=== PATIENT | male | born 1955 | race Caucasian/White ===

== ENCOUNTER 2017-08-13 13:19 | Inpatient (IN) | payer OTHER ==
[~2017-08-13] VITALS: Ht 185.4 cm; Wt 190.5 kg
--- NOTE | ~2017-08-13 | HC ---
[facility] [place] [address] CONSULTATION Name: CHIDI ROMO Room #: [facility]ly [facility], [facility]- ADM IN M.R.#: [id number] Admission: 08/13/17 Attend Phys: Jarad Del Rosario DO Discharge: Date of : 55 Report #: [id number] THIS REPORT FOR: //name// CC: FAM unknown Jarad Del Rosario DATE OF SERVICE: 08/13/2017 REFERRING PROVIDER: Elan Gill MD. REASON FOR CONSULTATION: Respiratory failure. CHIEF COMPLAINT: Weakness. HISTORY OF PRESENT ILLNESS: Our group was asked to evaluate the patient in consultation while hospitalized at [facility] in the ICU. The patient was transferred here from [facility] earlier today. The patient was transferred on mechanical ventilatory support. The patient is unable to vocalize, but able to answer some yes/no questions. Seems alert and appropriate on discussing. Apparently, he has been having a prolonged period of generalized weakness, perhaps even up to 1 month. The patient states he did have some increased shortness of breath and has had some chest tightness today. No fevers, chills or sweats reported. The patient was brought to the Emergency Department at [facility] where he was found to be hypercapnic and in respiratory distress. The patient was subsequently intubated and troponin was mildly elevated. He was transferred here for further management. He is on heparin GTT for possible myocardial infarction. Chest x-ray in the Emergency Department showed significant cardiomegaly and bibasilar left greater than right infiltrate/atelectasis and effusions. ALLERGIES: INCLUDE PENICILLIN. OUTPATIENT MEDICATIONS: Include ____, fish oil, glipizide, lisinopril/hydrochlorothiazide, omeprazole, Restoril, Vicodin and Xanax. PAST MEDICAL HISTORY: 1. Hypertension. 2. Diabetes mellitus type 2. 3. Morbid obesity. 4. COPD. SOCIAL HISTORY: The patient states he is an active smoker up until very recently. Alcohol consumption uncertain. FAMILY HISTORY: Unobtainable due to current status. [facility] [address] [place] [address] CONSULTATION Name: CHIDI ROMO Room #: [address] [place] [address] IN M.R.#: [id number] Admission: 08/13/17 Attend Phys: Jarad Del Rosario DO Discharge: Date of : 55 Report #: [id number] REVIEW OF SYSTEMS: Otherwise unobtainable due to current status. PHYSICAL EXAMINATION: VITAL SIGNS: Afebrile, pulse in 70s, respiratory rate of 24 set on the ventilator and blood pressure was originally ____. GENERAL: This is a morbidly obese, middle-aged male, arousable on the vent, does not appear in any distress with facial plethora noted. ENT: Endotracheal tube in place. Significant clear oral secretions. NECK: Thick and supple. No lymphadenopathy. LUNGS: Diminished coarse expiratory rhonchi and expiratory wheezes noted throughout anteriorly. Did not auscultate posteriorly. CARDIOVASCULAR: Heart was regular, cannot appreciate any murmurs, although heart sounds were difficult to auscultate. ABDOMEN: Obese, soft and nontender. No masses noted. No surgical scars appreciated. EXTREMITIES: Revealed some chronic venous stasis changes with markedly diminished pulses. Some cyanosis to the distal lower extremities with trace edema. NEUROLOGIC: The patient moving all extremities, arousable, following simple commands. LABORATORIES: Here arterial blood gas done on assist control, tidal volume 600, rate of 14, PEEP of 5, FiO2 100% revealed pH 7.21, pCO2 76, pO2 85, bicarbonate 30, lactate was 1.76. Additional laboratories here pending. Followup chest x-ray here pending. EKG done at [facility], computer interpretation suggested atrial flutter, appears to be more sinus tachycardia to my review and some poor R-wave progression. White blood cell count 9000, hemoglobin 19, hematocrit 59 and platelet count 161. Sodium is 137, potassium 5.5, chloride 99 and bicarbonate 28. BUN 55 and creatinine 2.5. Chest x-ray as described in HPI. IMPRESSION: 1. Acute hypercapnic respiratory failure. 2. Acute probably on chronic hypoxemic respiratory failure given his facial plethora and elevated hemoglobin. Suspect significant chronic hypoxemia, likely related to chronic obstructive pulmonary disease. Possible obesity hypoventilation with underlying obstructive sleep apnea possible and also would evaluate for hypothyroidism. 3. Probably acute on chronic renal insufficiency. 4. Hyperkalemia. 5. Hypertension. Right radial arterial line placed for further evaluation of this and markedly elevated blood pressures. 6. Chest pains with elevated troponin per cardiology. Would consider pulmonary embolism also in the differential. SUGGESTIONS: 1. Continue heparin. [facility] [address] [place] [address] CONSULTATION Name: CHIDI ROMO Room #: 246-P ADM IN M.R.#: [id number] Admission: 08/13/17 Attend Phys: Jarad Del Rosario DO Discharge: Date of : 55 Report #: [id number] 2. Followup chest x-ray. 3. Cardiology evaluation. 4. Echocardiogram. 5. Lower extremity venous Doppler. 6. Continue antibiotics as planned. 7. We will adjust ventilator to optimize minute volume and reduce peak airway pressures on prior settings. Peak airway pressures in the 40s, much better on lower tidal volume high rate settings. We will obtain followup arterial blood gas. 8. Systemic steroids. 9. Bronchodilators. 10. Continue with antibiotics as ordered. Total critical care time 45 minutes, not including any procedures to this point. Discussed with Dr. Gill and nursing at the bedside. By: [id number] Francisco Ortiz MD /nt
--- NOTE | ~2017-08-13 | 2DMMODE ---
[facility] [employer] [place] [address] 2 D/M-MODE ECHOCARDIOGRAM Name: CHIDI ROMO Room #: 246-P ADM IN M.R.#: [id number] Admission: 08/13/17 Attend Phys: Jarad Del Rosario, Discharge: Date of : 55 Date of Service: 08/14/17 0928 Report #: [id number] THIS REPORT FOR: //name// APPROVED REPORT Study performed: 08/14/2017 08:22:21 EXAM: Comprehensive 2D, Doppler, and color-flow Echocardiogram Patient Location: ICU Room #: 246 Status: routine BSA: 3.22 HR: 116 bpm BP: 160/90 mmHg Other Information Study Quality: Technically Limited Indications COPD Dyspnea 2D Dimensions Ascending Ao: 41.07 (22-36mm) Left Ventricle Left ventricle is grossly normal size. Regional wall motion is not well visualized but grossly normal. Moderate concentric left ventricular hypertrophy. The left ventricular systolic function is normal. The left ventricular ejection fraction is within the normal range. LVEF is 55-60%. This study is not technically sufficient to allow evaluation of the LV diastolic function. Right Ventricle Right ventricle is not well visualized. Right ventricular systolic function is grossly normal. Atria Left atrium is not well visualized. Right atrium is not well visualized. Aortic Valve The aortic valve is not well visualized. No aortic regurgitation is present. There is no aortic valvular stenosis. [facility] [address] [place] [address] 2 D/M-MODE ECHOCARDIOGRAM Name: CHIDI ROMO Room #: 246-P ADM IN M.R.#: [id number] Admission: 08/13/17 Attend Phys: Jarad Del Rosario, Discharge: Date of : 55 Date of Service: 08/14/17927 Report #: [id number] Mitral Valve Mitral valve is not well visualized. There is no mitral valve regurgitation noted. No evidence of mitral valve stenosis. Tricuspid Valve Tricuspid valve is not well visualized. There is no tricuspid valve regurgitation noted. Pulmonic Valve Pulmonic valve is not visualized. Great Vessels Aortic root is not well visualized. Aortic root appears dilated. IVC is not well visualized. Pericardium Moderate posterior pericardial effusion. <Conclusion> Very limited study The left ventricular systolic function is normal. Moderate concentric left ventricular hypertrophy. LVEF is 55-60%. The aortic valve is not well visualized. Significant stenosis probably absent Mitral valve is not well visualized. No mitral valve regurgitation noted. Moderate posterior pericardial effusion. <ELECTRONICALLY SIGNED> By: Deshaun Killain MD, [facility] 08/14/17927 7 0928 Deshaun Killian MD, FACC /INF
--- NOTE | ~2017-08-13 | EKG ---
[address] [address] ELECTROCARDIOGRAM REPORT Name: CHIDI ROMO Room #: 246-P ADM IN M.R.#: [id number] Admission: 08/13/17 Attend Phys: Jarad Del Rosario DO Discharge: Date of : 55 Report #: [id number] THIS REPORT FOR: //name// [facility] Test Date: 2017-08-14 Test Time: 10:20:01 Pat Name: CHIDI ROMO Department: Room: 246 P Gender: M Machine Builder: Klever TORREZ : 1955 Requested By: Hanna Mercedes Order Number: [id number] MD: Naun Early Measurements Intervals [place] Rate: 121 P: -84 [place]: 143 QRS: -40 QRSD: 119 T: 138 QT: 337 QTc: 479 Interpretive Statements Atrial flutter vs atrial fibrillation. Nonspecific T abnormalities, lateral leads Electronically Signed On 08-14-2017 13:06:32 CDT by Naun Early [email or web address] <ELECTRONICALLY SIGNED> By: Naun Early MD 08/14/17 1306 1020 1020 Naun Early MD /HIRAL
--- NOTE | ~2017-08-13 | HC ---
[facility] [place] [address] CONSULTATION Name: CHIDI ROMO Room #: 246-P ADM IN M.R.#: [id number] Admission: 08/13/17 Attend Phys: Jarad Del Rosario DO Discharge: Date of : 55 Report #: [id number] THIS REPORT FOR: //name// CC: FAM unknown Jarad Del Rosario REASON FOR CONSULTATION: I was asked to evaluate concerning pneumonia, respiratory failure and shock. HISTORY OF PRESENT ILLNESS: The patient is a 61-year-old with suspected obstructive sleep apnea, COPD with morbid obesity, who presented to [facility] in respiratory distress. He required intubation and mechanical ventilation, he was transferred to [facility] for further care. We do not have much history leading up to his hospital stay. He presented to the Emergency Room stating that he needed to be hospitalized because of generalized weakness and shortness of air. He denied any chest pain. No nausea, vomiting or diarrhea. No dysuria or frequency. In the Emergency Room at [facility], his hemoglobin is 18.5, WBC 9.4, platelet count 161,000. Differential was unremarkable. His creatinine was 2.5 up from his baseline of 0.9. Liver function test normal. Bicarbonate of 28, potassium of 5.5. Troponin was 1.4. Alcohol level was undetectable. Acetaminophen level, salicylate level, acetone level undetectable. BNP was 9324. Chest x-ray showed some basilar infiltrates. Subsequently, he remains on heparin drip. He was given IV antibiotic therapy. Blood gas on arrival on FiO2 of 100% showed a pO2 of 85, pCO2 76, pH 7.2, with bicarbonate 32. Lactate 1.7. PAST MEDICAL HISTORY: Diabetes, hypertension, COPD, gastroesophageal reflux, chronic back pain, tonsillectomy. FAMILY HISTORY: Noncontributory. SOCIAL HISTORY: He is a smoker of cigarettes. No significant alcohol use. Does use marijuana, . REVIEW OF SYSTEMS: Noted above. PHYSICAL EXAMINATION: VITAL SIGNS: Afebrile. Pulse 112, respiration rate 23, blood pressure 73/41 with a MAP of 49. Now has a right upper extremity PICC catheter in place and an arterial line. He is on 100% FiO2. He was sedated on Levophed drip. He was morbidly obese. HEENT: Pupils were equal, round and reactive to light. Orally intubated. NG to suction. NECK: Thick and supple. LUNGS: Decreased breath sounds bilaterally. HEART: Tachycardic and regular. ABDOMEN: Obese. No hepatosplenomegaly or mass appreciated. [address] [address] CONSULTATION Name: CHIDI ROMO Room #: [address] [place] [address] IN M.R.#: [id number] Admission: 08/13/17 Attend Phys: Jarad Del Rosario DO Discharge: Date of : 55 Report #: [id number] GENITOURINARY: External genitalia unremarkable with indwelling Bonilla catheter. EXTREMITIES: Unremarkable. Right upper extremity PICC site was unremarkable. His arterial line was unremarkable. LABORATORY STUDIES: Venous ultrasound unremarkable, but not a good study. Repeat laboratory studies have not been completed from this morning. IMPRESSION: A 61-year-old with respiratory failure, septic shock, bilateral pulmonary infiltrates consistent with community-acquired pneumonia, also has elevated troponin, concerning for ischemia. He has acute renal failure with normal anion gap. He has respiratory acidosis. PLAN: Recommend broad antibiotic coverage. Cultures of blood and sputum. Urine antigens. Continue full support for sepsis. Monitor cardiac enzymes. <ELECTRONICALLY SIGNED> By: Tonio Chavez MD 08/14/17 0839 1938 0053 Tonio Chavez MD /nt
--- NOTE | ~2017-08-13 | EKG ---
[place] [address] [facility] [place] [address] ELECTROCARDIOGRAM REPORT Name: CHIDI ROMO Room #: 246-P ADM IN M.R.#: [id number] Admission: 08/13/17 Attend Phys: Jarad Del Rosario DO Discharge: Date of : 55 Report #: [id number] THIS REPORT FOR: //name// [facility] Test Date: 2017-08-15 Test Time: 08:57:28 Pat Name: CHIDI ROMO Department: Room: 246 P Gender: M Senior Applications Engineer: HERBER : 1955 Requested By: Naun Early Order Number: [id number] MD: Naun Early Measurements Intervals [place] Rate: 125 P: [place]: QRS: -77 QRSD: 129 T: 88 QT: 353 QTc: 510 Interpretive Statements Atrial flutter with 2:1 AV block Ventricular premature complex Nonspecific IVCD with LAD Consider anterior infarct Nonspecific T abnormalities, lateral leads Compared to ECG 08/14/2017 10:20:01 2:1 AV block now present Ventricular premature complex(es) now present Intraventricular conduction delay now present Myocardial infarct finding now present Atrial fibrillation no longer present T-wave abnormality still present Electronically Signed On 08-15-2017 12:16:16 CDT by Naun Eraly [email or web address] <ELECTRONICALLY SIGNED> By: Naun Early MD 08/15/17 1216 6 08 Naun Early MD /EPI
--- NOTE | ~2017-08-13 | CATHLAB ---
[facility] [address] [place] [address] INVASIVE PROCEDURE REPORT Name: CHIDI ROMO Room #: 208-P ADM IN M.R.#: [id number] Admission: 08/13/17 Attend Phys: Jarad Del Rosario, Discharge: Date of : 55 Date of Service: 08/20/17 1829 Report #: [id number] THIS REPORT FOR: //name// APPROVED REPORT Patient Details Patient Status: In-Patient Room #: The patient is a 61 year-old male Event Personnel Yasmani Ramirez Management Manager, Valarie Castillo RN RN, Leila Velazquez Sandifer, David Monitor Procedures Performed Left Heart Cath w/or w/o Coronaries [id number] [facility] Indication Non-STEMI , Dyspnea Risk Factors Obesity, Hypercholesterolemia, Hypertension Procedure Narrative The Right Groin^ was infiltrated with 1% Lidocaine subcutaneous anesthesia. A PINNACLE 5FR Sheath #[id number] sheath was inserted into the RFA^. Coronary angiography was performed using coronary diagnostic catheters. The right coronary system was accessed and visualized with a JR4 catheter. The left coronary system was accessed and visualized with a 5FR JL5 #[id number] catheter. The left ventricle was accessed and visualized with a PIGTAIL catheter. Left ventricular/Aortic Valve gradient assessed via catheter pullback. Left ventriculogram was performed in 30 degree projection. Closure device was deployed with a Fr MYNXGRIP 5F #[id number]. There was no hematoma. Intraoperative Conscious Sedation Sedation start time: 16:56 Case end Time: 17:25 Fluoro Time: 4.52 minutes Dose: 2105 mGy Contrast Type and Amount: Visipaque 145 ml Coronary Angiography The patient's coronary anatomy is right dominant. [place] [address] [place] [address] INVASIVE PROCEDURE REPORT Name: DEMETRIUSJANAY EscalanteCHIDI Room #: 208-P [facility] IN [facility].#: [id number] Admission: 08/13/17 Attend Phys: Jarad Del Rosario, Discharge: Date of : 55 Date of Service: 08/20/17 1829 Report #: [id number] Resighini Artery Percent Stenosis The cardiac catheterization was technically difficult secondary to visualization problems. The patient has morbid obesity. Diagnostic Cath Left Main Large-caliber vessel, patent with no flow-limiting lesions. LAD After giving off a good size first septal clin application specialist, there is a total occlusion in the mid LAD segment. The LAD after the occlusion is filled via collateral circulation. Circumflex Supplies 2 obtuse marginal arteries. OM1 Small-caliber vessel, mild disease. OM2 Moderate size caliber vessel with mild disease. Right Coronary Large, dominant vessel with a mild to moderate obstruction in the proximal segment, 30-40%. R PDA Patent with no flow-limiting lesions. RPLV Multiple posterior lateral branches, with no flow-limiting lesions. Left Ventriculography The left ventricle is mildly dilated in size with decreased contractility. The left ventricular ejection fraction is estimated to be 40%. There is hypokinesis of the distal anterolateral, apical and distal inferior segments. Hemodynamics The aortic pressure is 163/124 mmHg with a mean of 98 mmHg. The left ventricular pressure is 159/31 mmHg with a mean of mmHg. The left ventricular end diastolic pressure is 41 mmHg. There was no gradient across the aortic valve upon pullback. Pullback from the left ventricle to the aorta revealed no gradient across the aortic valve. Conclusion 1. 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 2. Dominant RCA with mild to moderate disease. 3. Moderate segmental LV dysfunction. 4. Recommend medical therapy versus CABG. [facility] [address] [place] [address] INVASIVE PROCEDURE REPORT Name: CHIDI ROMO Room #: 208-P [facility] IN M.R.#: [id number] Admission: 08/13/17 Attend Phys: Jarad Del Rosario, Discharge: Date of : 55 Date of Service: 08/20/171828 Report #: [id number] Recommendations Medical Therapy <ELECTRONICALLY SIGNED> By: Yasmani Ramirez MD 08/20/171828 28 1829 Yasmani Ramirez MD /INF
--- NOTE | ~2017-08-13 | P ---
[facility] [place] [address] PROCEDURE REPORT Name: CHIDI ROMO Room #: 246-P [facility] IN M.R.#: [id number] Admission: 08/13/17 Attend Phys: Jarad Del Rosario, Discharge: Date of : 55 Report #: [id number] THIS REPORT FOR: //name// CC: FAM unknown Jarad Del Rosario DATE OF SERVICE: 08/13/2017 PROCEDURE: Right radial arterial line placement. INDICATION: Hypotension and respiratory failure, on vasopressors. PROCEDURE NOTATION: Equipment was brought to the bedside. Right radial arterial site was chosen, was cleansed with 2% chlorhexidine gluconate using a sterile technique including sterile towels to create a sterile field and the 20-gauge Arrow arterial catheter kit. Right radial artery is palpated and accessed easily on the first attempt with right radial arterial catheter kit. Wire easily advanced and catheter over the wire. This was removed with pulsatile blood flow noted and was connected to a pressure transducer, sutured in position using 3-0 silk. Good waveform noted. Line flushed and aspirated easily. The patient tolerated well with good distal perfusion noted post-procedure. This was dressed with clear OpSite. By: 1734 [id number] Francisco Ortiz MD /nt
--- NOTE | ~2017-08-13 | EKG ---
[address] [address] ELECTROCARDIOGRAM REPORT Name: CHIDI ROMO Room #: 246-P ADM IN M.R.#: [id number] Admission: 08/13/17 Attend Phys: Jarad Del Rosario DO Discharge: Date of : 55 Report #: [id number] THIS REPORT FOR: //name// [facility] Test Date: 2017-08-13 Test Time: 17:37:58 Pat Name: CHIDI ROMO Department: Room: 246 P Gender: M Attorney At Law: Ga COELHO : 1955 Requested By: Elan Gill Order Number: [id number] MD: Naun Early Measurements Intervals [place] Rate: 111 P: -87 [place]: 133 QRS: -53 QRSD: 121 T: 113 QT: 342 QTc: 465 Interpretive Statements Ectopic atrial tachycardia, unifocal Left bundle branch block No previous ECG available for comparison Electronically Signed On 08-13-2017 22:54:55 CDT by Naun Early [email or web address] <ELECTRONICALLY SIGNED> By: Naun Early MD 08/13/17 2254 36 36 Naun Early MD /HIRAL
[2017-08-13 16:35] LABS: ABG SAMPLE TYPE ARTERIAL; BE(vivo) -1.3 mmol/L (-2 to +3); HCO3 29.8 mmol/L (22.0-26.0); LACTATE 1.76 mmol/L (0.5-2.0); O2(CT) 25.1 mL/dL (15.0-23.0); O2Hb 91.3 % (92.0-98.0); PCO2 76.4 mmHg (35.0-45.0); PO2 85.7 mmHg (80.0-100.0); STICK SITE L.RADIAL; TIDAL VOLUME 600 ml; pH 7.209 (7.360-7.450); tCO2 32.1 mmol/L (24.0-30.0)
[2017-08-13 16:36] LABS: ABG COMMENT ABX
[2017-08-13 17:00] VITALS: BP 89/45
[2017-08-13 18:00] VITALS: BP 73/41
[2017-08-13 19:26] LABS: ABG SAMPLE TYPE ARTERIAL; BE(vivo) 0.8 mmol/L (-2 to +3); HCO3 29.3 mmol/L (22.0-26.0); LACTATE 1.56 mmol/L (0.5-2.0); O2(CT) 26.1 mL/dL (15.0-23.0); O2Hb 94.2 % (92.0-98.0); PCO2 60.3 mmHg (35.0-45.0); PO2 92.1 mmHg (80.0-100.0); sO2 96.2 % (92.0-98.0); tCO2 31.2 mmol/L (24.0-30.0)
[2017-08-13 19:27] LABS: STICK SITE LINE; TIDAL VOLUME 500 ml; VDS A/C 24 cc; pH 7.305 (7.360-7.450)
[2017-08-13 19:51] LABS: BASOPHILS 0.9 % (0.0-2.0); EOSINOPHILS 0.6 % (0.0-3.0); HEMATOCRIT 56.5 % (42.0-52.0); HEMOGLOBIN 18.2 gm/dL (14.0-18.0); LYMPHOCYTES 10.1 % (24.0-44.0); MCH 30.3 pg (26.0-34.0); MCHC 32.3 g/dL (28.0-37.0); MONOCYTES 6.4 % (1.0-8.0); PLATELET COUNT 137 thou/uL (150-400); RBC 6.01 mil/uL (4.50-6.00); RDW 16.2 % (10.5-14.5)
[2017-08-13 19:52] LABS: MANUAL DIFF NO
[2017-08-13 20:01] LABS: CALCIUM 8.7 mg/dL (8.5-10.1); POTASSIUM 5.2 mmol/L (3.5-5.1)
[2017-08-13 21:12] LABS: URINE BILIRUBIN 1+ (Negative); URINE BLOOD 3+ (Negative); URINE GLUCOSE-RANDOM* NEGATIVE (Negative); URINE KETONES TRACE (Negative); URINE PROTEIN (DIPSTICK) TRACE (Negative); URINE SPECIFIC GRAVITY 1.025 (1.003-1.035); URINE UROBILINOGEN 0.2 E.U./dl (0.2-1.0)
[2017-08-13 21:14] LABS: ICTOTEST (BILI CONFIRMATORY) Positive (Negative); URINE COLOR DARK YELLOW; URINE LEUKOCYTES-REFLEX 3+ (Negative)
[2017-08-13 21:27] LABS: SQUAMOUS 0-3 Few /LPF (0-3)
[2017-08-13 21:28] LABS: CASTS None Seen /LPF (None Seen); CRYSTALS None Seen /LPF (None Seen); URINE WBC-REFLEX >25 Many /HPF (0-5)
[2017-08-13 21:29] LABS: URINE RBC 0-2 Rare /HPF (0-2)
[2017-08-14 00:32] LABS: CALCIUM 8.6 mg/dL (8.5-10.1); CREATININE 1.8 mg/dL (0.7-1.3); POTASSIUM 5.3 mmol/L (3.5-5.1)
[2017-08-14 03:37] LABS: ALBUMIN 3.1 g/dL (3.4-5.0); CALCIUM 8.7 mg/dL (8.5-10.1); CREATININE 1.9 mg/dL (0.7-1.3); POTASSIUM 5.2 mmol/L (3.5-5.1); TOTAL BILIRUBIN 2.2 mg/dL (<0.1-1.0)
[2017-08-14 03:41] LABS: TROPONIN-I 1.75 ng/mL (<0.04-0.07)
[2017-08-14 05:30] LABS: ABG SAMPLE TYPE ARTERIAL; BE(vivo) 2.2 mmol/L (-2 to +3); HCO3 28.1 mmol/L (22.0-26.0); LACTATE 1.79 mmol/L (0.5-2.0); O2(CT) 24.2 mL/dL (15.0-23.0); O2Hb 91.5 % (92.0-98.0); PCO2 47.4 mmHg (35.0-45.0); pH 7.391 (7.360-7.450); sO2 93.1 % (92.0-98.0); tCO2 29.6 mmol/L (24.0-30.0)
[2017-08-14 05:31] LABS: STICK SITE LINE; TIDAL VOLUME 500 ml
[2017-08-14 05:40] LABS: HEMOGLOBIN 17.7 gm/dL (14.0-18.0); MCH 30.1 pg (26.0-34.0); MCHC 32.3 g/dL (28.0-37.0); MCV 93.3 fL (80.0-100.0); RBC 5.9 mil/uL (4.50-6.00); RDW 16.3 % (10.5-14.5)
[2017-08-14 05:47] LABS: CALCIUM 8.6 mg/dL (8.5-10.1); CREATININE 1.8 mg/dL (0.7-1.3); POTASSIUM 5.7 mmol/L (3.5-5.1)
[2017-08-14 11:29] LABS: ABG SAMPLE TYPE ARTERIAL; BE(vivo) 2.8 mmol/L (-2 to +3); HCO3 30.3 mmol/L (22.0-26.0); O2(CT) 23.8 mL/dL (15.0-23.0); O2Hb 91.7 % (92.0-98.0); PCO2 56.2 mmHg (35.0-45.0); PO2 71.8 mmHg (80.0-100.0); pH 7.349 (7.360-7.450); sO2 93.4 % (92.0-98.0)
[2017-08-14 11:30] LABS: Pressure Support 8 cm H20; STICK SITE LINE
[2017-08-14 17:39] LABS: ABG SAMPLE TYPE ARTERIAL; BE(vivo) -0.8 mmol/L (-2 to +3); Face Shield 50 %; HCO3 27.5 mmol/L (22.0-26.0); LACTATE 1.94 mmol/L (0.5-2.0); O2(CT) 23.7 mL/dL (15.0-23.0); PCO2 58.3 mmHg (35.0-45.0); PO2 67.7 mmHg (80.0-100.0); STICK SITE LINE; pH 7.291 (7.360-7.450); sO2 91.1 % (92.0-98.0); tCO2 29.3 mmol/L (24.0-30.0)
[2017-08-15] VITALS (21 sets, daily range): BP systolic 96–125; BP diastolic 57–86
[2017-08-15 05:14] LABS: ABG SAMPLE TYPE ARTERIAL; BE(vivo) 2.7 mmol/L (-2 to +3); Face Shield 50 %; HCO3 32.3 mmol/L (22.0-26.0); LACTATE 1.86 mmol/L (0.5-2.0); O2(CT) 22.9 mL/dL (15.0-23.0); PO2 74.8 mmHg (80.0-100.0); STICK SITE LINE; pH 7.281 (7.360-7.450); sO2 92.8 % (92.0-98.0); tCO2 34.5 mmol/L (24.0-30.0)
[2017-08-15 05:15] LABS: PCO2 70.2 mmHg (35.0-45.0)
[2017-08-15 05:32] LABS: CALCIUM 8.8 mg/dL (8.5-10.1); CREATININE 1.5 mg/dL (0.7-1.3); POTASSIUM 4.8 mmol/L (3.5-5.1)
[2017-08-15] MEDS ORDERED: RESTORIL15 M1 PO (18:51)
[2017-08-15] MEDS ORDERED: XANAX 0.5 MG0.5 MG PO (18:52)
[2017-08-15] MEDS ORDERED: LISINOPRIL10 MG (18:53)
[2017-08-15] MEDS ORDERED: PRILOSEC 10MG C10 MG PO (18:54)
[2017-08-15] MEDS ORDERED: AMARYL2 MG (18:55)
[2017-08-15] MEDS ORDERED: NORCO 10-325 T1 EACH PO (18:56)
[2017-08-16 01:14] LABS: HEMATOCRIT 52.1 % (42.0-52.0); HEMOGLOBIN 16.8 gm/dL (14.0-18.0); MCHC 32.2 g/dL (28.0-37.0); MCV 93.4 fL (80.0-100.0); RBC 5.58 mil/uL (4.50-6.00); RDW 16.3 % (10.5-14.5); WBC 9.9 thou/uL (4.0-11.0)
[2017-08-16 02:14] LABS: CALCIUM 8.7 mg/dL (8.5-10.1); CREATININE 1.5 mg/dL (0.7-1.3); POTASSIUM 4.4 mmol/L (3.5-5.1)
[2017-08-16 03:41] VITALS: BP 127/93
[2017-08-16 07:04] LABS: ABG SAMPLE TYPE ARTERIAL; BE(vivo) 5.7 mmol/L (-2 to +3); LACTATE 1.93 mmol/L (0.5-2.0); O2(CT) 22.9 mL/dL (15.0-23.0); O2Hb 92.2 % (92.0-98.0); PCO2 69.4 mmHg (35.0-45.0); PO2 71.4 mmHg (80.0-100.0); sO2 92.6 % (92.0-98.0); tCO2 37.1 mmol/L (24.0-30.0)
[2017-08-16 07:05] LABS: Face Shield 40 %; STICK SITE L.RADIAL
[2017-08-16 07:19] VITALS: BP 156/86
[2017-08-16] MEDS ORDERED: GLUCOTROL5 MG PO (10:57)
[2017-08-16] MEDS ORDERED: LISINOPRIL-HCT1 EACH PO (10:59)
[2017-08-16] MEDS ORDERED: CELEBREX 200 M200 M1 PO (11:02)
[2017-08-16 11:13] VITALS: BP 109/67
[2017-08-16 15:00] VITALS: BP 149/95
[2017-08-16 19:26] VITALS: BP 127/90
[2017-08-16 23:53] VITALS: BP 144/99
[2017-08-17 04:27] VITALS: BP 156/103
[2017-08-17 08:31] LABS: ABG SAMPLE TYPE ARTERIAL; BE(vivo) 10.3 mmol/L (-2 to +3); HCO3 42.8 mmol/L (22.0-26.0); LACTATE 1.49 mmol/L (0.5-2.0); O2(CT) 25.7 mL/dL (15.0-23.0); O2Hb 95.2 % (92.0-98.0); PO2 97.9 mmHg (80.0-100.0); sO2 96.3 % (92.0-98.0); tCO2 45.6 mmol/L (24.0-30.0)
[2017-08-17 08:39] LABS: PCO2 91.1 mmHg (35.0-45.0); STICK SITE L.BRACHIAL
[2017-08-17 08:50] VITALS: BP 125/85
[2017-08-17 08:55] LABS: HEMATOCRIT 54.6 % (42.0-52.0); HEMOGLOBIN 17.5 gm/dL (14.0-18.0); MCHC 32.1 g/dL (28.0-37.0); MCV 93.5 fL (80.0-100.0); RBC 5.84 mil/uL (4.50-6.00); RDW 15.8 % (10.5-14.5); WBC 7.9 thou/uL (4.0-11.0)
[2017-08-17 08:59] LABS: CALCIUM 8.8 mg/dL (8.5-10.1); CREATININE 1.2 mg/dL (0.7-1.3); POTASSIUM 4.4 mmol/L (3.5-5.1)
[2017-08-17 12:00] VITALS: BP 155/99
[2017-08-17 13:23] LABS: ABG SAMPLE TYPE ARTERIAL; HCO3 44.4 mmol/L (22.0-26.0); LACTATE 2.14 mmol/L (0.5-2.0); O2(CT) 22.6 mL/dL (15.0-23.0); O2Hb 87.8 % (92.0-98.0); PO2 56.9 mmHg (80.0-100.0); pH 7.378 (7.360-7.450); sO2 87.7 % (92.0-98.0); tCO2 46.8 mmol/L (24.0-30.0)
[2017-08-17 13:24] LABS: PCO2 77.2 mmHg (35.0-45.0)
[2017-08-17 13:25] LABS: STICK SITE L.RADIAL
[2017-08-17 16:00] VITALS: BP 136/68
[2017-08-17 19:12] VITALS: BP 142/71
[2017-08-18 00:50] VITALS: BP 133/93
[2017-08-18 03:48] VITALS: BP 151/95
[2017-08-18 08:05] VITALS: BP 119/86
[2017-08-18 11:05] VITALS: BP 100/49
[2017-08-18 16:30] VITALS: BP 136/102
[2017-08-18 19:45] VITALS: BP 99/61
[2017-08-19 04:45] VITALS: BP 129/78
[2017-08-19 07:55] VITALS: BP 122/93
[2017-08-19 08:09] LABS: ANION GAP < 0 mmol/L (7-16); BUN 43 mg/dL (7-18); CALCIUM 8.5 mg/dL (8.5-10.1); CHLORIDE 97 mmol/L (98-107); CO2 44 mmol/L (21-32); CREATININE 1.1 mg/dL (0.7-1.3); GLUCOSE 140 mg/dL (74-106); SODIUM 140 mmol/L (136-145)
[2017-08-19 11:26] LABS: URINE BILIRUBIN NEGATIVE (Negative); URINE BLOOD 2+ (Negative); URINE COLOR ORANGE; URINE GLUCOSE-RANDOM* NEGATIVE (Negative); URINE KETONES NEGATIVE (Negative); URINE LEUKOCYTES-REFLEX NEGATIVE (Negative); URINE PROTEIN (DIPSTICK) TRACE (Negative); URINE SPECIFIC GRAVITY 1.015 (1.003-1.035)
[2017-08-19 11:51] LABS: CASTS None Seen /LPF (None Seen); CRYSTALS None Seen /LPF (None Seen); SQUAMOUS None Seen /LPF (0-3); URINE WBC-REFLEX 0-5 Rare /HPF (0-5)
[2017-08-19 12:59] VITALS: BP 143/98
[2017-08-19 17:15] VITALS: BP 151/111
[2017-08-19 19:31] VITALS: BP 108/84
[2017-08-20 03:32] VITALS: BP 125/92
[2017-08-20 08:18] VITALS: BP 116/88
[2017-08-20 20:49] VITALS: BP 136/92
[2017-08-21 03:12] VITALS: BP 132/80
[2017-08-21 04:57] LABS: HEMATOCRIT 54.9 % (42.0-52.0); HEMOGLOBIN 17.6 gm/dL (14.0-18.0); MCH 29.8 pg (26.0-34.0); MCV 93.2 fL (80.0-100.0); RBC 5.89 mil/uL (4.50-6.00); RDW 15.9 % (10.5-14.5); WBC 9.8 thou/uL (4.0-11.0)
[2017-08-21 05:10] LABS: CALCIUM 8.9 mg/dL (8.5-10.1); CREATININE 1.3 mg/dL (0.7-1.3)
[2017-08-21 08:22] VITALS: BP 130/104
[2017-08-21 11:38] VITALS: BP 151/11
[2017-08-21 15:11] VITALS: BP 155/100
[2017-08-21 15:36] VITALS: BP 155/100
[2017-08-21 19:42] VITALS: BP 141/94
[2017-08-22 03:59] VITALS: BP 125/87
[2017-08-22 07:43] LABS: HEMATOCRIT 54.8 % (42.0-52.0); HEMOGLOBIN 17.8 gm/dL (14.0-18.0); MCHC 32.6 g/dL (28.0-37.0); MCV 92.2 fL (80.0-100.0); RBC 5.94 mil/uL (4.50-6.00); RDW 15.9 % (10.5-14.5); WBC 12.9 thou/uL (4.0-11.0)
[2017-08-22 08:01] LABS: CALCIUM 8.9 mg/dL (8.5-10.1); CREATININE 1.2 mg/dL (0.7-1.3); POTASSIUM 4.2 mmol/L (3.5-5.1)
[2017-08-22 08:15] VITALS: BP 131/84
[2017-08-22 12:02] VITALS: BP 155/100
[2017-08-22 12:05] VITALS: BP 145/94
[2017-08-22] MEDS ORDERED: CEFUROXIME500 MG PO (12:10)
[2017-08-22] MEDS ORDERED: DUONEB 2.5-0.5 M3 ML INH (12:11)
[2017-08-22] MEDS ORDERED: PRADAXA150 MG PO (12:13)
[2017-08-22] MEDS ORDERED: DIGOXIN250 MCG PO (12:13)
[2017-08-22] MEDS ORDERED: ATORVASTATIN CA40 MG PO (12:14)
[2017-08-22] MEDS ORDERED: ASPIR 8181 MG PO (12:15)
[2017-08-22] MEDS ORDERED: LOPRESSOR25 PO (12:15)
[2017-08-22] MEDS ORDERED: LASIX 40 MG TAB40 M2 PO (12:16)
[2017-08-22] MEDS ORDERED: PREDNISONE 10 M10 M1 PO (12:19)
[2017-08-22] MEDS ORDERED: CELEXA 20 MG TA20 MG PO (12:21)
[2017-08-22] MEDS ORDERED: COZAAR 25 MG TA25 M1 PO (12:30)
[2017-08-22 13:48] VITALS: BP 155/100
== END 2017-08-22 18:33 | disposition home health service (06) | DRG 871 ==
LOC: 2N 13:19 → ICU 16:11 → 2N 08-15 17:15
PROVIDERS: Internal Medicine; Internal Medicine Cardiovascular Disease; Internal Medicine Geriatric Medicine; Internal Medicine Pulmonary Disease; Specialist
PROC: 5A1935Z Respiratory Ventilation, Less than 24 Consecutive Hours (ICD-10-PCS; principal; 2017-08-13)
PROC: 4A133B1 Monitoring of Arterial Pressure, Peripheral, Percutaneous Approach (ICD-10-PCS; 2017-08-13)
PROC: 03HY32Z Insertion of Monitoring Device into Upper Artery, Percutaneous Approach (ICD-10-PCS; 2017-08-13)
PROC: 4A133J1 Monitoring of Arterial Pulse, Peripheral, Percutaneous Approach (ICD-10-PCS; 2017-08-13)
PROC: 02HV33Z Insertion of Infusion Device into Superior Vena Cava, Percutaneous Approach (ICD-10-PCS; 2017-08-17)
PROC: 5A09357 Assistance with Respiratory Ventilation, Less than 24 Consecutive Hours, Continuous Positive Airway Pressure (ICD-10-PCS; 2017-08-18)
PROC: B2111ZZ Fluoroscopy of Multiple Coronary Arteries using Low Osmolar Contrast (ICD-10-PCS; 2017-08-20)
PROC: B2151ZZ Fluoroscopy of Left Heart using Low Osmolar Contrast (ICD-10-PCS; 2017-08-20)
PROC: 4A023N7 Measurement of Cardiac Sampling and Pressure, Left Heart, Percutaneous Approach (ICD-10-PCS; 2017-08-20)
DX: A41.9 Sepsis, unspecified organism (principal); R65.21 Severe sepsis with septic shock; J18.9 Pneumonia, unspecified organism; J96.21 Acute and chronic respiratory failure with hypoxia; J96.22 Acute and chronic respiratory failure with hypercapnia; I50.31 Acute diastolic (congestive) heart failure; G93.40 Encephalopathy, unspecified; I21.4 Non-ST elevation (NSTEMI) myocardial infarction; Z68.43 Body mass index [BMI] 50.0-59.9, adult; N17.9 Acute kidney failure, unspecified; I31.3 Pericardial effusion (noninflammatory); I48.92 Unspecified atrial flutter; E66.2 Morbid (severe) obesity with alveolar hypoventilation; I13.0 Hypertensive heart and chronic kidney disease with heart failure and stage 1 through stage 4 chronic kidney disease, or unspecified chronic kidney disease; J44.9 Chronic obstructive pulmonary disease, unspecified; K21.9 Gastro-esophageal reflux disease without esophagitis; G89.29 Other chronic pain; M54.9 Dorsalgia, unspecified; F17.210 Nicotine dependence, cigarettes, uncomplicated; E11.22 Type 2 diabetes mellitus with diabetic chronic kidney disease; E87.5 Hyperkalemia; I48.91 Unspecified atrial fibrillation; Z66 Do not resuscitate; K59.09 Other constipation; F12.90 Cannabis use, unspecified, uncomplicated; N30.90 Cystitis, unspecified without hematuria; I25.10 Atherosclerotic heart disease of native coronary artery without angina pectoris; B96.20 Unspecified Escherichia coli [E. coli] as the cause of diseases classified elsewhere; N18.9 Chronic kidney disease, unspecified; Z28.89 Immunization not carried out for other reason; Z88.0 Allergy status to penicillin; Z88.2 Allergy status to sulfonamides; Z79.899 Other long term (current) drug therapy
CPT/HCPCS: 10078; 10081; 27000; 85026